=== PATIENT | male | born 1985 | race Caucasian/White ===

== ENCOUNTER 2022-01-11 14:34 | Emergency (ER) | payer BC ==
[~2022-01-11] VITALS: Ht 167.6 cm; Wt 59.0 kg
[2022-01-11] MEDS ORDERED: ESCITALOPRAM OX10 MG PO (14:52)
[2022-01-11] MEDS ORDERED: LEXAPRO5 MG PO (14:53)
== END 2022-01-11 19:59 | disposition home or self-care (01) ==
LOC: ED 14:34
DX: R10.9 Unspecified abdominal pain (principal); E83.42 Hypomagnesemia; J45.909 Unspecified asthma, uncomplicated; Z88.0 Allergy status to penicillin; Z79.899 Other long term (current) drug therapy; F17.200 Nicotine dependence, unspecified, uncomplicated
CPT/HCPCS: 36415; 74177; 80053; 81001; 83735; 85025; 96361; 99284-25; J1790; J7030; Q9967